=== PATIENT | female | born 1990 | race Two or more races ===

== ENCOUNTER 2021-04-12 19:30 | Emergency (ER) | payer OTHER ==
[~2021-04-12] VITALS: Ht 160 cm; Wt 68.9 kg
[2021-04-12] MEDS ORDERED: DIPH,PERTUSS(ACELL),TET VAC/PF 0.5 ML IM-VACC ONE ×2 (20:00→20:30)
[2021-04-12] MEDS ORDERED: LIDOCAINE-MPF 1%, 5ML INFIL ONE (20:00)
[2021-04-12] MEDS ORDERED: LIDOCAINE-MPF 1%, 5ML ONE (20:29)
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
[2021-04-12] MEDS ORDERED: NEOSPORIN OINT. PKT 1 PACKET ONE (21:10)
[2021-04-12 21:32] VITALS: BP 111/70
--- NOTE | 2021-04-12 21:33 | NUR ---
Patient/Caregiver given discharge instructions and they have confirmed that they understand the instructions. Patient ambulatory with steady gait. NAD, all questions answered appropriately, denies additional needs at this time. No personal belongings left in room after discharge.
== END 2021-04-12 21:34 | disposition home or self-care (01) ==
LOC: ED 21:10
DX: S61.412A Laceration without foreign body of left hand, initial encounter (principal); W26.0XXA Contact with knife, initial encounter; Y93.89 Activity, other specified; Y92.009 Unspecified place in unspecified non-institutional (private) residence as the place of occurrence of the external cause; Y99.8 Other external cause status
CPT/HCPCS: 12001; 90471; 90715; 99283